=== PATIENT | male | born 1945 | race Caucasian/White ===

== ENCOUNTER 2019-11-26 19:11 | Emergency (ER) | payer MEDICARE ==
[2019-11-26] MEDS ORDERED: 0.9 % SODIUM CHLORIDE 1,000 ML BAG IV ONE ×2 (19:28→19:54)
[2019-11-26 19:33] LABS: ABSOLUTE NEUTROPHIL COUNT 7.07; BASO % 0.7 % (0-6); EOS % 0.8 % (0-6); HEMATOCRIT 42.2 % (42.0-52.0); HEMOGLOBIN 13.5 gm/dl (14.0-18.0); LYMPH % 31.8 % (16-45); MEAN CORPUSCULAR HEMOGLOBIN 29.7 pg (27-33); MEAN PLATELET VOLUME 9.5 fl (7.4-10.4); MONO % 6.7 % (0-9); PLATELET COUNT 312 K/uL (130-400); RED BLOOD COUNT 4.54 M/uL (4.40-5.70); RED CELL DISTRIBUTION WIDTH 13.4 % (11.5-14.5); WHITE BLOOD COUNT W/O DIFF 11.8 K/uL (4.2-12.2)
--- NOTE | 2019-11-26 19:36 | Emergency Department Record ---
History of Present Illness - General Chief Complaint: Fall Injury Stated Complaint: HEAD INJ FALL Time Seen by Provider: 11/26/19 19:13 Source: Patient, Family Mode of Arrival: Wheelchair Limitations: No limitations - History of Present Illness Initial Comments: The patient is here with his son due to a trip and fall 2-3 hours ago. The patient states he has a hx of frequent falls for at least a year and has [facility] The patient denies that any diagnosis was given regarding his frequent falls. The patient's son does state that the falls are worse over the last 9 months since the patient has started drinking heavily. There was no reported syncope, CP, SOB, or AP prior to the fall. Since the fall the patient has had a mild SIDHU and neck pain but denies any LOC. His Td is not UTD. MD Complaint: Fall Onset/Timin -: Hour(s) Fall From: From height (distance) When Fall Occurred: Unsure Fall Witnessed: No Place Fall Occurred: Home Loss of Consciousness: Unsure Prolonged Down Time?: Unclear Symptoms Prior to Fall: None Location: Head Context: Alcohol use Associated Symptoms: Lightheaded, Neck pain - [place] Coma Scale Eye Response: (4) Open spontaneously Motor Response: (6) Obeys commands Verbal Response: (5) Oriented [place] Total: 15 - Related Data Home Medications Medication Instructions Recorded Confirmed Last Taken Atorvastatin Calcium 20 mg PO DAILY 11/26/19 11/26/19 Unknown Budesonide/Formoterol Fumarate 10.2 gm IH DAILY 11/26/19 11/26/19 Unknown [Symbicort 160-4.5 Mcg Inhaler] Diclofenac Sodium 75 mg PO DAILY 11/26/19 11/26/19 Unknown Duloxetine HCl 30 mg PO DAILY 11/26/19 11/26/19 Unknown Lisinopril 10 mg PO DAILY 11/26/19 11/26/19 Unknown Metformin HCl 1,000 mg PO BID 11/26/19 11/26/19 Unknown Tamsulosin HCl [Flomax] 2 cap PO DAILY 11/26/19 11/26/19 Unknown Thiamine HCl [Vitamin B-1] 250 mg PO DAILY 11/26/19 11/26/19 Unknown Tiotropium [place] [Spiriva 4 gm IH DAILY 11/26/19 11/26/19 Unknown Respimat] Vit C/Vit E AC/Lut/Copper/Zinc 1 tab PO DAILY 11/26/19 11/26/19 Unknown [PreserVision Lutein Softgel] Allergies Allergy/AdvReac Type Severity Reaction Status Date / Time No Known Drug Allergies Allergy Verified 11/26/19 19:15 Travel Screening - Travel/Exposure Within Last 30 Days Have you traveled within the last 30 days?: No - Travel/Exposure Within Last Year Have you traveled outside the [place] in the last year?: No - Additonal Travel Details Have you been exposed to anyone with a communicable illness?: No - Travel Symptoms Symptom Screening: None Review of Systems Constitutional: Denies: Chills, Fever Eyes: Denies: Eye discharge ENT: Denies: Congestion Respiratory: Denies: Cough, Dyspnea Cardiovascular: Denies: Chest pain Endocrine: Denies: Fatigue Gastrointestinal: Denies: Diarrhea, Vomiting Genitourinary: Denies: Hematuria Musculoskeletal: Denies: Arthralgia Skin: Denies: Bruising Past Medical History - SOCIAL HISTORY Smoking Status: Current every day smoker Alcohol Use: Heavy Drug Use: None - RESPIRATORY Hx Respiratory Disorders: Yes Comment:: emphysma - CARDIOVASCULAR Hx Cardio Disorders: Yes Hx Hypertension: Yes - NEURO Hx Neuro Disorders: Yes Hx Neuropathy: Yes - GI Hx GI Disorders: No - Hx Genitourinary Disorders: Yes Hx Prostate Problems: Yes - ENDOCRINE Hx Endocrine Disorders: Yes Hx Diabetes: Yes - MUSCULOSKELETAL Hx Musculoskeletal Disorders: Yes Hx Back Injury: Yes - PSYCH Hx Psych Problems: Yes Hx Depression: Yes - HEMATOLOGY/ONCOLOGY Hx Hematology/Oncology Disorders: No Family Medical History Any Significant Family History?: No Physical Exam - General General Appearance: Alert, Oriented x3, Cooperative, No acute distress - Head Head exam: negative: Atraumatic, Normocephalic, Normal inspection (There is a large laceration to the back of the head on the L measuring 3.5 cm's with a significant hematoma present.) Image of Face/Head: 1 - Area of Lac. - Eye Eye exam: Normal appearance, PERRL, EOMI - ENT Throat exam: Normal inspection. negative: Tonsillar erythema, Tonsillar exudate - Neck Neck exam: Normal inspection, Full ROM. negative: Tenderness - Respiratory Respiratory exam: Normal lung sounds bilaterally. negative: Respiratory distress - Cardiovascular Cardiovascular Exam: Regular rate, Normal rhythm, Normal heart sounds - GI/Abdominal GI/Abdominal exam: Soft, Normal bowel sounds. negative: Tenderness - Extremities Extremities exam: Normal inspection, Full ROM, Normal capillary refill. negative: Tenderness - Back Back exam: Reports: Normal inspection - Neurological Neurological exam: Alert, Normal gait, Oriented X3, Reflexes normal. negative: Abnormal gait, Altered, Motor sensory deficit - Skin Skin exam: negative: Rash Course Vital Signs 11/26/19 11/26/19 19:20 19:27 Pulse Rate 97 H Respiratory 18 Rate Blood Pressure 76/58 Blood Pressure 83/61 [Right Arm] Pulse Ox 95 - Reevaluation(s) Reevaluation #1: Procedure note: The L posterior scalp lac was anesth. with 3 cc's [place] 1% with Epi. The lac was cleared of old clot and cleansed with betadine and sterile saline. The lac was then closed with 6 ehsna. There were no complications. 11/26/19 20:32 Reevaluation #2: The patient is doing very well at this time. He is awake and alert and denies any head or neck pain. The patient's BP is significantly improved. I did discuss the lab and xray results with the patient. 11/26/19 20:45 Reevaluation #3: The patient is doing a lot better at this time. He is up walking without difficulty. The patient is supposed to use a walker and he was encouraged to do that. His son will stay with him tonight to be sure he is ok during the night. 11/26/19 21:16 Medical Decision Making - Data Complexity MDM Data: Labs Ordered and/or Reviewed, X-Ray Ordered and/or Reviewed, EKG Ordered and/or Reviewed - Lab Data Result diagrams: 11/26/19 19:26 11/26/19 19:26 - EKG Data -: EKG Interpreted by Me EKG: No Acute Changes, Normal EKG - Radiology Data Radiology results: Report reviewed (Head CT: Neg for acute changes. Cervical CT: Neg for acute changes.) Disposition Disposition: Discharge Clinical Impression: Laceration of scapula Qualifiers: Encounter type: initial encounter Laterality: unspecified laterality Qualified Code(s): S41.019A - Laceration without foreign body of unspecified shoulder, initial encounter Disposition: Home, Self-Care Condition: (2) Stable Instructions: Laceration (ED), Fall Prevention for Older Adults (ED) Additional Instructions: Keep dry for 2 days then be gentle with washing your hair. Return to the ER for any worsening pain, fever, or vomiting. Please use Tylenol for pain and see your doctor due to the frequent falls. Please return to the ER in 10 days for staple removal. Forms: Patient Portal Access Time of Disposition: 21:18 Quality - Quality Measures Quality Measures: N/A - Blood Pressure Screening View Details: Yes Does Patient Have Any of the Following: No Blood Pressure Classification: Normal BP Reading Systolic Measurement: 76 Diastolic Measurement: 58 Screening for High Blood Pressure: < Normal BP, F/U Not Required > [G8783]
[2019-11-26] MEDS ORDERED: Diph,Pert(Acell),Tet Vac 0.5 ML SYR IM ONE (19:44)
[2019-11-26 19:45] LABS: PARTIAL THROMBOPLASTIN TIME 24.6 SECONDS (24.5-39.1); PROTHROMBIN TIME (PATIENT) 10.4 SECONDS (9.5-12.1)
[2019-11-26 19:46] LABS: BLOOD UREA NITROGEN 26 mg/dL (8-23); CREATININE 1.2 mg/dL (0.7-1.2); EST GLOMERULAR FILTRATION RATE > 60 mL/min
[2019-11-26 19:47] LABS: ALCOHOL 0.129 g/dL (0-0.010); TOTAL PROTEIN 6.9 g/dL (6.6-8.7)
[2019-11-26 19:49] LABS: GLUCOSE,RANDOM 188 mg/dL (74-109)
[2019-11-26 19:52] LABS: ALBUMIN 4.6 g/dL (4.0-5.0); ALKALINE PHOSPHATASE 78 U/L (40-129); ALT/SGPT 24 U/L (<41); AST/SGOT 19 U/L (10.0-50.0)
--- NOTE | 2019-11-26 20:22 | CT SCAN REPORT ---
EXAMINATION: CT Head without IV Contrast EXAM DATE: 11/26/2019 8:05 PM TECHNIQUE: Standard protocol CT images of the head were obtained without intravenous contrast. [place] l and sagittal reconstructed images were created. INDICATION: head injury Technologist note: Fall today COMPARISON: None HAND DOMINANCE: Right. ENCOUNTER: Not applicable FINDINGS: 1. There is no intracranial mass, midline shift, extraaxial fluid collection or hemorrhage. 2. The ventricles, sulci and cisterns are normal. 3. There are no suspicious area of altered attenuation. 4. There is no fracture. Tubular shaped scalp hematoma in the left posterior parietal region, possib ly from a puncture wound. 5. The visualized aspects of the orbits, paranasal sinuses, and mastoid air cells are normal. IMPRESSION: No acute intracranial abnormality. Scalp injury in the left posterior parietal region. Dictated by: Deirdre Dupont MD on 11/26/2019 8:15 PM. .
--- NOTE | 2019-11-26 20:39 | CT SCAN REPORT ---
EXAMINATION: CT Cervical Spine without IV Contrast EXAM DATE: 11/26/2019 8:04 PM TECHNIQUE: Standard protocol cervical spine CT imaging was performed without intravenous contrast. Co amy and sagittal images were reconstructed. INDICATION: trauma Technologist note: Fall today COMPARISON: None ENCOUNTER: Not applicable FINDINGS: Normal alignment of the cervical vertebral bodies. Vertebral body heights are maintained. Moderate di sc space narrowing at C5-6 and C6-C7 with both anterior and posterior osteophytes. Facet joints are a ligned normally. There is mild to moderate right neural foraminal narrowing at C5-6 and mild right ne ural foraminal narrowing at C6-7. No fractures are identified. Cervicothoracic junction is within normal limits. No soft tissue abnorma lities. IMPRESSION: No evidence of fracture or malalignment of the cervical spine. There are moderate degenerative change s at C5-6 and C6-7. Dictated by: Deirdre Dupont MD on 11/26/2019 8:31 PM. .
--- NOTE | 2019-11-27 06:41 | Emergency Department Record ---
History of Present Illness - General Chief Complaint: Fall Injury Stated Complaint: HEAD INJ FALL Time Seen by Provider: 11/26/19 19:13 Source: Patient, Family Mode of Arrival: Wheelchair - History of Present Illness Onset/Timin -: Hour(s) Fall From: From height (distance) When Fall Occurred: Unsure Fall Witnessed: No Place Fall Occurred: Home Loss of Consciousness: Unsure Prolonged Down Time?: Unclear Symptoms Prior to Fall: None Location: Head Context: Alcohol use Associated Symptoms: Lightheaded, Neck pain - [place] Coma Scale Eye Response: (4) Open spontaneously Motor Response: (6) Obeys commands Verbal Response: (5) Oriented [place] Total: 15 - Related Data Home Medications Medication Instructions Recorded Confirmed Last Taken Atorvastatin Calcium 20 mg PO DAILY 11/26/19 11/26/19 Unknown Budesonide/Formoterol Fumarate 10.2 gm IH DAILY 11/26/19 11/26/19 Unknown [Symbicort 160-4.5 Mcg Inhaler] Diclofenac Sodium 75 mg PO DAILY 11/26/19 11/26/19 Unknown Duloxetine HCl 30 mg PO DAILY 11/26/19 11/26/19 Unknown Lisinopril 10 mg PO DAILY 11/26/19 11/26/19 Unknown Metformin HCl 1,000 mg PO BID 11/26/19 11/26/19 Unknown Tamsulosin HCl [Flomax] 2 cap PO DAILY 11/26/19 11/26/19 Unknown Thiamine HCl [Vitamin B-1] 250 mg PO DAILY 11/26/19 11/26/19 Unknown Tiotropium [place] [Spiriva 4 gm IH DAILY 11/26/19 11/26/19 Unknown Respimat] Vit C/Vit E AC/Lut/Copper/Zinc 1 tab PO DAILY 11/26/19 11/26/19 Unknown [PreserVision Lutein Softgel] Allergies Allergy/AdvReac Type Severity Reaction Status Date / Time No Known Drug Allergies Allergy Verified 11/26/19 19:15 Travel Screening - Travel/Exposure Within Last 30 Days Have you traveled within the last 30 days?: No - Travel/Exposure Within Last Year Have you traveled outside the [place] in the last year?: No - Additonal Travel Details Have you been exposed to anyone with a communicable illness?: No - Travel Symptoms Symptom Screening: None Review of Systems Constitutional: Denies: Chills, Fever Eyes: Denies: Eye discharge ENT: Denies: Congestion Respiratory: Denies: Cough, Dyspnea Cardiovascular: Denies: Chest pain Endocrine: Denies: Fatigue Gastrointestinal: Denies: Diarrhea, Vomiting Genitourinary: Denies: Hematuria Musculoskeletal: Denies: Arthralgia Skin: Denies: Bruising Past Medical History - SOCIAL HISTORY Smoking Status: Current every day smoker Alcohol Use: Heavy Drug Use: None - RESPIRATORY Hx Respiratory Disorders: Yes Comment:: emphysma - CARDIOVASCULAR Hx Cardio Disorders: Yes Hx Hypertension: Yes - NEURO Hx Neuro Disorders: Yes Hx Neuropathy: Yes - GI Hx GI Disorders: No - Hx Genitourinary Disorders: Yes Hx Prostate Problems: Yes - ENDOCRINE Hx Endocrine Disorders: Yes Hx Diabetes: Yes - MUSCULOSKELETAL Hx Musculoskeletal Disorders: Yes Hx Back Injury: Yes - PSYCH Hx Psych Problems: Yes Hx Depression: Yes - HEMATOLOGY/ONCOLOGY Hx Hematology/Oncology Disorders: No Family Medical History Any Significant Family History?: No Physical Exam - General Limitations: No limitations Course Vital Signs 11/26/19 11/26/19 11/26/19 19:20 19:27 20:56 Temperature 97.6 F Pulse Rate 97 H Pulse Rate [ 94 H Pulse Ox Probe] Respiratory 18 16 Rate Blood Pressure 76/58 Blood Pressure 83/61 136/72 [Right Arm] Pulse Ox 95 100 Medical Decision Making - Lab Data Result diagrams: 11/26/19 19:26 11/26/19 19:26 Lab Results 11/26/19 11/26/19 11/26/19 Range/Units 19:26 19:26 19:26 WBC 11.8 (4.2-12.2) K/uL RBC 4.54 (4.40-5.70) M/uL Hgb 13.5 L (14.0-18.0) gm/dl Hct 42.2 (42.0-52.0) % MCV 93.0 (81-97) fl MCH 29.7 (27-33) pg MCHC 32.0 (32-36) g/dl RDW 13.4 (11.5-14.5) % Plt Count 312 (130-400) K/uL MPV 9.5 (7.4-10.4) fl Gran % 60.0 (47-80) % Lymphocytes % 31.8 (16-45) % Monocytes % 6.7 (0-9) % Eosinophils % 0.8 (0-6) % Basophils % 0.7 (0-6) % Absolute Neutrophils 7.07 PT 10.4 (9.5-12.1) SECONDS INR 1.0 APTT 24.6 (24.5-39.1) SECONDS Sodium 138 (136-145) mmol/L Potassium 4.7 H (3.4-4.5) mmol/L Chloride 98 (98-107) mmol/L Carbon Dioxide 20.0 L (22-29) mmol/L Anion Gap 20.0 H (7-16) BUN 26 H (8-23) mg/dL Creatinine 1.2 (0.7-1.2) mg/dL Estimated GFR > 60 mL/min Random Glucose 188 H (74-109) mg/dL Calcium 9.0 (8.8-10.2) mg/dL Total Bilirubin 0.70 (0.2-1.0) mg/dL AST 19 (10.0-50.0) U/L ALT 24 (<41) U/L Alkaline Phosphatase 78 (40-129) U/L Total Protein 6.9 (6.6-8.7) g/dL Albumin 4.6 (4.0-5.0) g/dL Globulin 2.3 (1.4-4.8) gm/dL Albumin/Globulin Ratio 2.0 H (1.1-1.8) Ethyl Alcohol 0.129 H (0-0.010) g/dL Disposition Clinical Impression: Scalp laceration Laceration of scapula Qualifiers: Encounter type: initial encounter Laterality: unspecified laterality Qualified Code(s): S41.019A - Laceration without foreign body of unspecified shoulder, initial encounter Disposition: Home, Self-Care Condition: (2) Stable Instructions: Laceration (ED), Fall Prevention for Older Adults (ED) Additional Instructions: Keep dry for 2 days then be gentle with washing your hair. Return to the ER for any worsening pain, fever, or vomiting. Please use Tylenol for pain and see your doctor due to the frequent falls. Please return to the ER in 10 days for staple removal. Forms: Patient Portal Access Quality - Quality Measures Quality Measures: N/A - Blood Pressure Screening View Details: Yes Does Patient Have Any of the Following: Active Dx of HTN Blood Pressure Classification: Normal BP Reading Systolic Measurement: 76 Diastolic Measurement: 58 Screening for High Blood Pressure: Patient Exclusion, Hx of HTN [G9744]
== END 2019-11-26 21:24 | disposition home or self-care (01) ==
LOC: ER 19:11
DX: S01.01XA Laceration without foreign body of scalp, initial encounter (principal); R42 Dizziness and giddiness; M54.2 Cervicalgia; F10.129 Alcohol abuse with intoxication, unspecified; Y90.6 Blood alcohol level of 120-199 mg/100 ml; I10 Essential (primary) hypertension; E11.9 Type 2 diabetes mellitus without complications; F17.210 Nicotine dependence, cigarettes, uncomplicated; Z91.81 History of falling; W01.198A Fall on same level from slipping, tripping and stumbling with subsequent striking against other object, initial encounter; Y92.009 Unspecified place in unspecified non-institutional (private) residence as the place of occurrence of the external cause; Z79.84 Long term (current) use of oral hypoglycemic drugs
CPT/HCPCS: 12002; 70450; 72125; 80053; 80320; 85025; 85610; 85730; 90715; 93005; 93010; 99284; J7030

== ENCOUNTER 2019-12-07 14:53 | Emergency (ER) | payer MEDICARE ==
--- NOTE | 2019-12-07 15:01 | Emergency Department Record ---
History of Present Illness - General Chief Complaint: Suture removal Stated Complaint: STAPLE REMOVAL Time Seen by Provider: 12/07/19 14:55 Source: Patient Mode of arrival: Ambulatory Limitations: No limitations - History of Present Illness Initial Comments: The patient is here for staple removal. He denies any problems. Complaint: Suture/staple removal Onset/Timin -: Days(s) Returns Today for: Staple/stitch removal Symptoms Since Prior Visit: No new symptoms Associated Symptoms: None - Related Data Allergies Allergy/AdvReac Type Severity Reaction Status Date / Time No Known Drug Allergies Allergy Verified 12/07/19 15:00 Travel Screening - Travel/Exposure Within Last 30 Days Have you traveled within the last 30 days?: No - Travel/Exposure Within Last Year Have you traveled outside the [place] in the last year?: No - Additonal Travel Details Have you been exposed to anyone with a communicable illness?: No - Travel Symptoms Symptom Screening: None Past Medical History - SOCIAL HISTORY Smoking Status: Current every day smoker - RESPIRATORY Hx Respiratory Disorders: Yes Comment:: emphysma - CARDIOVASCULAR Hx Cardio Disorders: Yes Hx Hypertension: Yes - NEURO Hx Neuro Disorders: Yes Hx Neuropathy: Yes - GI Hx GI Disorders: No - Hx Genitourinary Disorders: Yes Hx Prostate Problems: Yes - ENDOCRINE Hx Endocrine Disorders: Yes Hx Diabetes: Yes - MUSCULOSKELETAL Hx Musculoskeletal Disorders: Yes Hx Back Injury: Yes - PSYCH Hx Psych Problems: Yes Hx Depression: Yes - HEMATOLOGY/ONCOLOGY Hx Hematology/Oncology Disorders: No Family Medical History Any Significant Family History?: No Physical Exam - General General Appearance: Alert, Oriented x3, Cooperative, No acute distress - Head Head exam: Normocephalic (The 6 ehsan were removed without diffuculty.). negative: Atraumatic - Eye Eye exam: Normal appearance Course Vital Signs 12/07/19 14:55 Temperature 97.9 F Pulse Rate 118 H Respiratory 20 Rate Blood Pressure 146/82 Pulse Ox 96 Disposition Disposition: Discharge Clinical Impression: Encounter for removal of ehsan Disposition: Home, Self-Care Condition: (2) Stable Instructions: Stitches Removal (ED) Additional Instructions: Keep clean and return to the ER for any problems. Forms: Patient Portal Access Time of Disposition: 15:01 Quality - Quality Measures Quality Measures: N/A - Blood Pressure Screening View Details: Yes Does Patient Have Any of the Following: No Blood Pressure Classification: Pre-Hypertensive BP Reading Systolic Measurement: 146 Diastolic Measurement: 82 Screening for High Blood Pressure: < Pre-Hypertensive BP, F/U Documented > [G8950] Pre-Hypertensive Follow-up Interventions: Referral to alternative/primary care provider.
== END 2019-12-07 15:06 | disposition home or self-care (01) ==
LOC: ER 14:53
DX: Z48.02 Encounter for removal of sutures (principal)